=== PATIENT | female | born 1940 | race Caucasian/White ===

== ENCOUNTER 2025-07-27 19:46 | Inpatient (IN) | payer OTHER, MEDICAID ==
[~2025-07-27] VITALS: Ht 160 cm; Wt 72.6 kg
[2025-07-27 19:49] VITALS: O2SAT 98
[2025-07-27 20:39] LABS: BASOPHILS % 0.9 % (0.0-2.0); EOSINOPHILS % 2.2 % (0.0-5.0); HEMATOCRIT. 37.2 % (36.0-48.0); HEMOGLOBIN. 12.1 g/dL (12.0-16.0); LYMPHOCYTES % 27.4 % (20.0-50.0); MEAN PLATELET VOLUME 9.9 fl (7.4-10.4); MONOCYTES % 9.5 % (2.0-8.0); NEUTROPHILS % 60.0 % (40.0-76.0); PLATELET 166 x1000/uL (130-400); RED BLOOD CELL COUNT 3.74 mill/uL (4.2-5.4); RED CELL DISTRIBUTION WIDTH 14.9 % (11.6-14.6)
[2025-07-27 20:52] LABS: CREATININE 2.3 mg/dL (0.6-1.0); UREA NITROGEN BLOOD 17.0 mg/dL (9-23)
[2025-07-27 20:56] LABS: INR 1.0
[2025-07-27 23:11] VITALS: BP 120/86; PULSE 79; RESP 18; TEMP 36.1; O2SAT 97
[2025-07-27 23:30] VITALS: BP 120/86; PULSE 79; RESP 18; TEMP 36.0844
[2025-07-27] MEDS ORDERED: DEXTROSE 50% WATER 50ML SYRINGE IV PRN (23:30)
[2025-07-27] MEDS ORDERED: HYDROCODONE/ACETAMINOPHEN 5/325MG TABLET PO PRN (23:30)
[2025-07-27] MEDS ORDERED: CLONIDINE 0.1MG TABLET PO PRN (23:30)
[2025-07-27] MEDS ORDERED: ACETAMINOPHEN 325MG TABLET PO PRN (23:30)
[2025-07-27] MEDS ORDERED: ONDANSETRON HCL 4MG/2ML INJ IV PRN (23:30)
[2025-07-27] MEDS ORDERED: MORPHINE SULFATE 2 MG/ML INJ (NOT FOR IM USE) IV PRN (23:30)
[2025-07-27] MEDS ORDERED: ZOLPIDEM TARTRATE 5MG TABLET PO PRN (23:30)
[2025-07-27] MEDS ORDERED: MAGNESIUM/ALUMINUM HYDROXIDE/SIMETHICONE 30ML UDC PO PRN (23:30)
[2025-07-28] VITALS: BP 121/73; PULSE 71; RESP 18; TEMP 36.2; O2SAT 98
[2025-07-28] MEDS ORDERED: METO-385 MT (00:29)
[2025-07-28] MEDS ORDERED: LOSA100T33 PO (00:29)
[2025-07-28] MEDS ORDERED: ATOR10TA69 MT (00:32)
[2025-07-28] MEDS ORDERED: ASPI-1497 PO (00:32)
[2025-07-28] MEDS ORDERED: LINA5TAB MT (00:32)
[2025-07-28] MEDS ORDERED: MULT-1146 MT (00:32)
[2025-07-28] MEDS ORDERED: AMLO-371 MT (00:32)
[2025-07-28 04:00] VITALS: BP 121/73; PULSE 72; RESP 18; TEMP 36.1; O2SAT 98
[2025-07-28] MEDS: BLOOD SUGAR DIAGNOSTIC STRIP TEST SCH (07:20)
[2025-07-28] MEDS: INSULIN LISPRO 100 UNITS/ML SUBCUT SCH (07:50)
[2025-07-28 07:55] LABS: BASOPHILS % 0.5 % (0.0-2.0); CREATININE 2.7 mg/dL (0.6-1.0); EOSINOPHILS % 2.6 % (0.0-5.0); HEMATOCRIT. 35.4 % (36.0-48.0); HEMOGLOBIN. 11.6 g/dL (12.0-16.0); LYMPHOCYTES % 23.2 % (20.0-50.0); MEAN PLATELET VOLUME 10.4 fl (7.4-10.4); MONOCYTES % 9.9 % (2.0-8.0); NEUTROPHILS % 63.8 % (40.0-76.0); PLATELET 151 x1000/uL (130-400); RED BLOOD CELL COUNT 3.57 mill/uL (4.2-5.4); RED CELL DISTRIBUTION WIDTH 15.0 % (11.6-14.6); UREA NITROGEN BLOOD 23.0 mg/dL (9-23)
[2025-07-28 08:00] VITALS: BP 142/67; PULSE 68; RESP 18; TEMP 36.3; O2SAT 100
[2025-07-28] MEDS: PANTOPRAZOLE SODIUM 40 MG/VIAL IV SCH (09:58)
[2025-07-28 12:00] VITALS: BP 135/62; PULSE 72; RESP 18; TEMP 36.4; O2SAT 99
[2025-07-28 16:00] VITALS: BP 130/77; PULSE 80; RESP 18; TEMP 36.8; O2SAT 99
[2025-07-28 17:26] LABS: HEPATITIS A AB IGM NEGATIVE (Negative)
[2025-07-28 17:27] LABS: HEPATITIS B CORE AB IGM NEGATIVE (Negative); HEPATITIS C AB NON REACTIVE (Neg) (Negative)
[2025-07-28] MEDS ORDERED: DULO20CA18 MT (18:57)
[2025-07-28 20:00] VITALS: BP 124/62; PULSE 81; RESP 20; TEMP 36.3; O2SAT 100
[2025-07-28] MEDS ORDERED: NALOXONE HCL 0.4MG/ML VIAL IV PRN (22:00)
[2025-07-28] MEDS: METOPROLOL SUCCINATE 50MG ER TABLET PO SCH (23:17)
[2025-07-29] VITALS (16 sets, daily range): BP systolic 125–178; BP diastolic 61–104; PULSE 63–81; RESP 17–20; TEMP 35.9–36.4; O2SAT 97–100
[2025-07-29 07:23] LABS: UREA NITROGEN BLOOD 53.0 mg/dL (9-23)
[2025-07-29 07:27] LABS: BASOPHILS % 0.7 % (0.0-2.0); EOSINOPHILS % 2.5 % (0.0-5.0); HEMATOCRIT. 34.4 % (36.0-48.0); HEMOGLOBIN. 11.3 g/dL (12.0-16.0); LYMPHOCYTES % 26.9 % (20.0-50.0); MEAN PLATELET VOLUME 10.5 fl (7.4-10.4); MONOCYTES % 11.1 % (2.0-8.0); NEUTROPHILS % 58.8 % (40.0-76.0); PLATELET 158 x1000/uL (130-400); RED BLOOD CELL COUNT 3.48 mill/uL (4.2-5.4); RED CELL DISTRIBUTION WIDTH 14.6 % (11.6-14.6)
[2025-07-29 08:18] LABS: CREATININE 4.0 mg/dL (0.6-1.0)
== END 2025-07-29 22:49 | disposition home or self-care (01) | DRG 314 ==
LOC: ER 19:46 → EDBEDREQTM 22:20 → EDBEDREQ 22:20 → ENRESERV 22:45 → 6WST 23:05
PROVIDERS: ADMIT Internal Medicine; ATTEND Internal Medicine
PROC: 5A1D70Z Performance of Urinary Filtration, Intermittent, Less than 6 Hours Per Day (ICD-10-PCS; principal; 2025-07-29)
DX: T82.838A Hemorrhage due to vascular prosthetic devices, implants and grafts, initial encounter (principal); N18.6 End stage renal disease; I12.0 Hypertensive chronic kidney disease with stage 5 chronic kidney disease or end stage renal disease; E11.22 Type 2 diabetes mellitus with diabetic chronic kidney disease; D64.9 Anemia, unspecified; Z79.82 Long term (current) use of aspirin; Z99.2 Dependence on renal dialysis; Y84.1 Kidney dialysis as the cause of abnormal reaction of the patient, or of later complication, without mention of misadventure at the time of the procedure; Z79.84 Long term (current) use of oral hypoglycemic drugs
CPT/HCPCS: 36415; 80048; 82962; 83036; 84443; 85025; 86705; 86709; 86850; 86900; 87340; 90935; 93005; 93970; 93971; 97162; 99285; G0378; J1815; J2470